=== PATIENT | female | born 1950 | race Caucasian/White ===

== ENCOUNTER → 2023-12-17 11:00 | Outpatient (REF) | payer MEDICARE, OTHER, SELFPAY | LOC: RAD 11:00 | PROVIDERS: ATTENDING PHYSICIAN Family Medicine | DX: M85.80 Other specified disorders of bone density and structure, unspecified site (principal); Z78.0 Asymptomatic menopausal state | CPT/HCPCS: 77080 ==

== ENCOUNTER → 2024-01-13 06:36 | Day surgery (SDC) | payer MEDICARE, OTHER, SELFPAY | LOC: GI 06:36 | PROVIDERS: ATTENDING PHYSICIAN Internal Medicine Gastroenterology | DX: R19.4 Change in bowel habit (principal); K57.30 Diverticulosis of large intestine without perforation or abscess without bleeding; K64.8 Other hemorrhoids; R12 Heartburn; K44.9 Diaphragmatic hernia without obstruction or gangrene; K22.89 Other specified disease of esophagus; K31.89 Other diseases of stomach and duodenum; K63.5 Polyp of colon; K29.50 Unspecified chronic gastritis without bleeding; K31.A19 Gastric intestinal metaplasia without dysplasia, unspecified site | CPT/HCPCS: 45380; 43239; 88305; 87220; 88342 ==

== ENCOUNTER 2024-07-20 06:19 | Outpatient (RCR) | payer MEDICARE, OTHER, SELFPAY | END 2024-07-20 23:59 | disposition home or self-care (01) | LOC: RPT 06:19 | PROVIDERS: ATTENDING PHYSICIAN Internal Medicine Gastroenterology; FAMILY PHYSICIAN Family Medicine | DX: M62.89 Other specified disorders of muscle (principal); Z73.6 Limitation of activities due to disability; N39.3 Stress incontinence (female) (male); K59.00 Constipation, unspecified; M54.50 Low back pain, unspecified | CPT/HCPCS: 97161; 97530 ==

== ENCOUNTER 2024-09-08 11:52 | Outpatient (RCR) | payer MEDICARE, OTHER, SELFPAY | END 2024-09-08 23:59 | disposition home or self-care (01) | LOC: RPT 11:52 | PROVIDERS: ATTENDING PHYSICIAN Internal Medicine Gastroenterology; FAMILY PHYSICIAN Family Medicine | DX: M62.89 Other specified disorders of muscle (principal); Z73.6 Limitation of activities due to disability; N39.3 Stress incontinence (female) (male); K59.00 Constipation, unspecified | CPT/HCPCS: 97110 ==

== ENCOUNTER 2024-09-28 11:54 | Outpatient (RCR) | payer MEDICARE, OTHER, SELFPAY | END 2024-09-28 23:59 | disposition home or self-care (01) | LOC: RPT 11:54 | PROVIDERS: ATTENDING PHYSICIAN Internal Medicine Gastroenterology; FAMILY PHYSICIAN Family Medicine | DX: M62.89 Other specified disorders of muscle (principal); Z73.6 Limitation of activities due to disability; N39.3 Stress incontinence (female) (male); K59.00 Constipation, unspecified | CPT/HCPCS: 97110; 97112 ==

== ENCOUNTER → 2024-10-03 15:43 | Outpatient (REF) | payer MEDICARE, OTHER, SELFPAY | LOC: RCS 15:43 | PROVIDERS: ATTENDING PHYSICIAN Family Medicine | DX: I34.0 Nonrheumatic mitral (valve) insufficiency (principal) | CPT/HCPCS: 93306 ==

== ENCOUNTER 2024-11-01 13:17 | Outpatient (RCR) | payer MEDICARE, OTHER, SELFPAY | END 2024-11-01 23:59 | disposition home or self-care (01) | LOC: RPT 13:17 | PROVIDERS: ATTENDING PHYSICIAN Internal Medicine Gastroenterology; FAMILY PHYSICIAN Family Medicine | DX: M62.89 Other specified disorders of muscle (principal); Z73.6 Limitation of activities due to disability; N39.3 Stress incontinence (female) (male); K59.00 Constipation, unspecified | CPT/HCPCS: 97110 ==

== ENCOUNTER → 2024-12-04 14:39 | Outpatient (REF) | payer MEDICARE, OTHER, SELFPAY | LOC: RAD 14:39 | PROVIDERS: ATTENDING PHYSICIAN Family Medicine | DX: E78.5 Hyperlipidemia, unspecified (principal) | CPT/HCPCS: 75571 ==

== ENCOUNTER → 2024-12-07 11:18 | Outpatient (REF) | payer MEDICARE, OTHER, SELFPAY | LOC: WDC 11:18 | PROVIDERS: ATTENDING PHYSICIAN Family Medicine | DX: Z12.31 Encounter for screening mammogram for malignant neoplasm of breast (principal) | CPT/HCPCS: 77063; 77067 ==

== ENCOUNTER 2025-08-31 17:52 | Emergency (ER) | payer MEDICARE, OTHER, SELFPAY ==
[2025-08-31 17:56] VITALS: BP 151/78
--- NOTE | 2025-08-31 18:45 | ED.SKININJ ---
HPI-Injury
<Jack Chambers PA-C - Last Filed: 08/31/25 23:37>
General
Chief Complaint: Head Injury
Source: patient
Exam Limitations: none
Time Seen by Provider: 08/31/25 18:26
History of Present Illness-Injury
Initial Injury comments:
75-year-old female presents for evaluation of head injury. She was playing catch with a grandson lost her balance hitting the right side of her head on the road. No loss of conscious. She is not anticoagulated. Seen initially at the urgent care
and sent here for further evaluation. She notes a slight headache. She denies any significant neck pain. No vision change or vomiting. They noted a laceration to the right side of the forehead.
Past History
<Jack Chambers PA-C - Last Filed: 08/31/25 23:37>
Past History
ED Past Medical History: Asthma
ED Past Surgical History: Orthopedic (Right knee replacement)
Social History
Tobacco: Non-smoker
Alcohol: None
Drug: None
Phy Exam
<Jack Chambers PA-C - Last Filed: 08/31/25 23:37>
Physical Exam
Physical Exam:
General: Well-appearing female no acute respiratory distress HEENT normal cephalic
1 cm laceration oriented in the horizontal direction over the right lateral mid forehead. Pupils equal round reactive to light TMs are normal cervical spine is nontender to palpation over the midline
Neurologic exam: Alert and oriented no facial asymmetry
Course
<Jack Chambers PA-C - Last Filed: 08/31/25 23:37>
Orders/Labs/Results
Orders:
Orders
08/31/25 17:56
CT Head W/o Iv Contrast Urgent
Comment:
Reason For Exam: head injury
08/31/25 20:03
Acetaminophen [Tylenol] 650 mg PO NOW STA
08/31/25 23:08
Levetiracetam [Keppra] 500 mg PO NOW STA
09/01/25 00:20
CT Head W/o Iv Contrast Urgent
Comment:
Reason For Exam: fall, headache, subdural - repeat
Vital Signs
Initial and Last Documented VS:
Initial Vital Signs
Temp Pulse Resp BP Pulse Ox
98.0 F 70 18 151/78 97
08/31/25 17:56 08/31/25 17:56 08/31/25 17:56 08/31/25 17:56 08/31/25 17:56
Last Documented Vital Signs
Temp Pulse Resp BP Pulse Ox
98.0 F 63 16 139/76 97
08/31/25 17:56 08/31/25 23:36 08/31/25 23:36 08/31/25 23:36 08/31/25 23:36
<LITZY Pearson - Last Filed: 09/01/25 01:45>
Orders/Labs/Results
Orders:
Orders
08/31/25 17:56
CT Head W/o Iv Contrast Urgent
Comment:
Reason For Exam: head injury
08/31/25 20:03
Acetaminophen [Tylenol] 650 mg PO NOW STA
08/31/25 23:08
Levetiracetam [Keppra] 500 mg PO NOW STA
09/01/25 00:20
CT Head W/o Iv Contrast Urgent
Comment:
Reason For Exam: fall, headache, subdural - repeat
Vital Signs
Initial and Last Documented VS:
Initial Vital Signs
Temp Pulse Resp BP Pulse Ox
98.0 F 70 18 151/78 97
08/31/25 17:56 08/31/25 17:56 08/31/25 17:56 08/31/25 17:56 08/31/25 17:56
Last Documented Vital Signs
Temp Pulse Resp BP Pulse Ox
98.0 F 63 16 139/76 97
08/31/25 17:56 08/31/25 23:36 08/31/25 23:36 08/31/25 23:36 08/31/25 23:36
<Jack Chambers PA-C - Last Filed: 08/31/25 23:37>
MDM/Problems Addressed
Differential Diagnosis Includes:
Fall with head strike. No cervical spine tenderness. Concern for skull fracture or intracranial hemorrhage. CT of the head was ordered through triage which I personally reviewed. The wound on the forehead was copiously irrigated with saline then
anesthetized with 1% lidocaine with epinephrine and closed with 5-0 Prolene sutures. 2 sutures were required in a simple erupted fashion to provide wound edge approximation and hemostasis.
<Jack Chambers PA-C - Last Filed: 08/31/25 23:37>
*Pulse Oximetry
SaO2: 97
<LITZY Pearson - Last Filed: 09/01/25 01:45>
*Radiology
Radiology exam reviewed: radiology read reviewed
*Pulse Oximetry
Oxygen Mode of Delivery: Room air
Patient hypoxic: no
*Critical Care Note
Total Time (30-74mins, 75-104mins- exclusive of procedures): Not Applicable
<Jack Chambers PA-C - Last Filed: 08/31/25 23:37>
Update Note
Update Note:
CT demonstrates 3 mm thick subdural hematoma. Discussed with the emergency room attending as well as neurosurgery, Dr. Gabriel Mathews. The patient fell 12 hours prior to my exam. Patient was offered transfer to trauma center however she was not
overly excited about this. Dr. Gabriel Mathews thought it was reasonable to repeat CT scan in 6 hours which is pending. If exam and CT is stable she can be discharged to follow-up with neurosurgery with keppra 500mg BID.
Case signed out pending repeat CT.
<LITZY Pearson - Last Filed: 09/01/25 01:45>
Update Note
Update Note:
CT demonstrates 3 mm thick subdural hematoma. Discussed with the emergency room attending as well as neurosurgery, Dr. Gabriel Mathews. The patient fell 12 hours prior to my exam. Patient was offered transfer to trauma center however she was not
overly excited about this. Dr. Gabriel Mathews thought it was reasonable to repeat CT scan in 6 hours which is pending. If exam and CT is stable she can be discharged to follow-up with neurosurgery with keppra 500mg BID.
Case signed out pending repeat CT.
0140: Unchanged small right frontal subdural hematoma measuring up to 3 mm in thickness. Patient audra awake alert no acute distress mild headache. Discussed with patient to take Tylenol [id number] as needed I did again review follow-up and
strict return precautions given.
ED Attending Note
<Jack Chambers PA-C - Last Filed: 08/31/25 23:37>
-
Portions of this chart may have been created with voice recognition software.� Occasional wrong word or��sound alike� substitutions may have occurred due to the inherent limitations of voice recognition software.
Discharge Plan
Departure
Patient Disposition: Home (Routine Discharge)
Date of Disposition: 09/01/25
Time of Disposition: 01:44
Patient with high blood pressure during this ER visit?: Yes
Covid-19: Not Applicable
Discharge Problem:
Acute subdural hematoma
Instructions: Head Injury in Adults (DC), BLOOD PRESSURE
Prescriptions:
New
levetiracetam [Keppra] 500 mg tablet
500 mg PO BID Qty: 14 0RF
No Action
levothyroxine [Synthroid] 137 MCG tablet
137 mcg PO DAILY
zolmitriptan [Zomig] 2.5 MG tablet
2.5 mg PO PRN PRN (Reason: migraine)
paroxetine HCl 20 MG tablet
20 mg PO DAILY
lansoprazole [Prevacid] 30 MG capsule,delayed release(DR/EC)
30 mg PO DAILY
vitamin B complex 1 TAB tablet
1 tab PO DAILY
albuterol sulfate 1 PUFF HFA aerosol inhaler
2 puff inhalation PRN PRN (Reason: asthma)
fluticasone propionate 1 SPRAY spray,suspension
1 spray inhalation QPM
monolkjnye-suzyqpmnvxwyb-gxiy [Fioricet] 1 EACH capsule
1 cap PO PRN PRN (Reason: migraine)
cholecalciferol (vitamin D3) [Vitamin D3] 4,000 UNIT capsule
4,000 unit PO QPM
Qvar 80 mcg/actuation
2 puff inhalation BID
Zinc
40 mg PO QPM
mupirocin 1 APPLIC ointment
1 applic intranasal BID Qty: 1 0RF
Patient Comments:
started treatment on wednesday12/04/19 and was taking BID. last took 12/07/19 at 0630
sennosides [senna] 1 TABLET tablet
2 tab PO BID 0RF
aspirin 325 MG tablet
325 mg PO DAILY 0RF
docusate sodium 100 MG capsule
100 mg PO BID 0RF
tramadol 50 MG tablet
50 mg PO Q6H PRN (Reason: moderate-severe pain) Qty: 40 0RF
gabapentin 100 MG capsule
200 mg PO TID Qty: 30 0RF
baclofen 10 MG tablet
10 mg PO BID PRN (Reason: muscle spasms) Qty: 25 0RF
acetaminophen 500 MG tablet
1,000 mg PO QID Qty: 1 0RF
Rx Instructions:
standing order
erythromycin 1 APPLIC ointment
1 applic OPHTHALMIC BID Qty: 1 0RF
Rx Instructions:
apply 1/4 inch to left eye twice a day till 12/10/19; then only at bedtime starting 12/11/19
lidocaine 1 PATCH adhesive patch,medicated
1 patch topical DAILY PRN (Reason: right thigh pain) Qty: 1 0RF
Rx Instructions:
Apply 1 patch to right thigh as needed
Do not apply over incision
ibuprofen 200 MG tablet
400 mg PO BID Qty: 1 0RF
Rx Instructions:
take with food
do not take within 2 hours of aspirin
ondansetron 4 MG tablet,disintegrating
4 mg PO TIDPRN PRN (Reason: nausea/vomiting) Qty: 20 0RF
dicyclomine 20 MG tablet
20 mg PO QIDPRN PRN (Reason: abdominal cramping) Qty: 20 0RF
Referrals:
Chandni Helton MD [Family Provider, Family Practice]
Gaurav Bneites DO [Active, Neurosurgery]
Activity Restrictions/Additional Instructions:
Continue with Keppra 500 mg twice a day. Follow-up with neurosurgeon. Please return here for worsening symptoms including worsening headache nausea vomiting difficulty walking, confusion behavior change or any further concerns
Interventions
Interventions:
*Risk Screen - Suicide Last Done: 08/31/25 17:55
*General Assessment Last Done: 08/31/25 17:55
*Neglect/Abuse Screening Last Done: 08/31/25 17:55
*ED- Fall Risk Assessment Last Done: 08/31/25 22:38
*ED COVID-19 Vaccine History Last Done: 08/31/25 17:55
*ED Influenza Vaccine History Last Done: 08/31/25 17:55
ED- Neurological Assessment Last Done: 08/31/25 18:23
ED-Skin Assessment Last Done: 08/31/25 18:23
Discharge Date and Time
Print Language: CHADIAN
[2025-08-31] MEDS: TYLENOL 650 MG PO (20:11)
[2025-08-31 20:17] VITALS: BP 141/82
[2025-08-31 22:11] VITALS: BP 139/73
[2025-08-31] MEDS: KEPPRA 500 MG PO (23:26)
[2025-08-31 23:36] VITALS: BP 139/76
[2025-09-01 01:50] VITALS: BP 144/77
== END 2025-09-01 01:51 | disposition home or self-care (01) ==
LOC: EMR 17:52
PROVIDERS: EMERGENCY PHYSICIAN Emergency Medicine; FAMILY PHYSICIAN Family Medicine
DX: S06.5X0A Traumatic subdural hemorrhage without loss of consciousness, initial encounter (principal); S01.81XA Laceration without foreign body of other part of head, initial encounter; W19.XXXA Unspecified fall, initial encounter; J45.909 Unspecified asthma, uncomplicated; Z96.651 Presence of right artificial knee joint
CPT/HCPCS: 99284; 12011; 70450